=== PATIENT | male | born 1990 ===

== ENCOUNTER 2017-07-20 13:21 | Emergency (ER) | payer OTHER ==
[2017-07-20 13:52] VITALS: BMI 27.3
--- NOTE | 2017-07-20 14:02 | C.PDOC ---
History Of Present Illness 27 y/o male presents to ED with complaints of sore throat and fever for 2 days. Patient states fever resolved but noticed neck swelling which prompted visit to ED. Patient admits to chills, cough, nausea, vomiting, cp, sob or any other complaints at this time. Time Seen by Provider: 07/20/17 13:52 Chief Complaint (Nursing): ENT Problem History Per: Patient History/Exam Limitations: no limitations Onset/Duration Of Symptoms: Days Current Symptoms Are (Timing): Still Present Associated Symptoms: Sore Throat Past Medical History Reviewed: Historical Data, Nursing Documentation, Vital Signs Vital Signs: Last Vital Signs Temp 98.1 F 07/20/17 13:30 Pulse 70 07/20/17 13:30 Resp 18 07/20/17 13:30 BP 120/78 07/20/17 13:30 Pulse Ox 99 07/20/17 14:03 - Medical History PMH: No Chronic Diseases Surgical History: No Surg Hx Family History: States: No Known Family Hx - Social History Hx Alcohol Use: Yes Hx Substance Use: No - Immunization History Hx Tetanus Toxoid Vaccination: No Hx Influenza Vaccination: No Hx Pneumococcal Vaccination: No Review Of Systems Except As Marked, All Systems Reviewed And Found Negative. Constitutional: Positive for: Fever, Chills ENT: Positive for: Throat Pain Physical Exam - Physical Exam Appears: Non-toxic, No Acute Distress Skin: Warm, Dry, No Rash Head: Atraumatic, Normacephalic Eye(s): bilateral: Normal Inspection Ear(s): Bilateral: Normal Oral Mucosa: Moist Throat: Erythema, Exudate Neck: Normal ROM, Supple Lymphatic: Adenopathy (bilateral cervical tenderness) Cardiovascular: Rhythm Regular Respiratory: Normal Breath Sounds, No Rales, No Rhonchi, No Wheezing Gastrointestinal/Abdominal: Soft, No Tenderness, No Guarding, No Rebound Neurological/Psych: Oriented x3 ED Course And Treatment O2 Sat by Pulse Oximetry: 99 (RA) Pulse Ox Interpretation: Normal Disposition Counseled Patient/Family Regarding: Diagnosis, Need For Followup, Rx Given - Disposition Referrals: [facility] [Outside] Disposition: HOME/ ROUTINE Disposition Time: 14:01 Condition: STABLE Additional Instructions: follow up with your doctor in 2 days call to make an appointment take medications as prescribed return to ER if symptoms worsens or progress Prescriptions: Amoxicillin 875 mg PO BID #20 tablet Naproxen [Naprosyn] 500 mg PO BID PRN #16 tab PRN Reason: Pain, Moderate (4-7) Instructions: Sore Throat, Adult (DC) Forms: General Discharge Instructions, [facility] (Albanian) - Clinical Impression Clinical Impression: Pharyngitis - Scribe Statement The provider has reviewed the documentation as recorded by the Jatinibchris Gibbs All medical record entries made by the Jatinibchris were at my direction and personally dictated by me. I have reviewed the chart and agree that the record accurately reflects my personal performance of the history, physical exam, medical decision making, and the department course for this patient. I have also personally directed, reviewed, and agree with the discharge instructions and disposition.
[2017-07-20 14:56] VITALS: BP 116/72; PULSE 76; RESP 20; TEMP 98.4
[2017-07-22 11:02] VITALS: O2SAT 99
== END 2017-07-20 14:56 | disposition home or self-care (01) ==
LOC: C.ER 13:21
DX: J02.9 Acute pharyngitis, unspecified (principal)